=== PATIENT | female | born 1990 | race Hispanic/Latino ===

== ENCOUNTER 2023-10-09 18:06 | Emergency (ER) | payer BC, SELFPAY ==
[2023-10-09] MEDS ORDERED: Metoclopramide HCl 10 MG (2 mL) VIAL ONE (18:27)
[2023-10-09] MEDS ORDERED: Ketorolac Tromethamine 30 MG (1 mL) VIAL ONE (18:27)
[2023-10-09] MEDS ORDERED: Ondansetron PF 4 MG/2 ML Vial ONE (18:27)
[2023-10-09] MEDS ORDERED: diphenhydrAMINE 50 MG/ML VIAL ONE (20:46)
== END 2023-10-09 21:30 | disposition home or self-care (01) ==
LOC: CSHERS 18:06
DX: G43.909 Migraine, unspecified, not intractable, without status migrainosus (principal); R11.10 Vomiting, unspecified
CPT/HCPCS: 96374; 96375; J1200; J1885; J2405; J2765